=== PATIENT | male | born 1965 | race Caucasian/White ===

== ENCOUNTER → 2018-08-26 | Outpatient (CLI) | payer BC, OTHER ==
[~2018-08-26] VITALS: Ht 180.3 cm; Wt 117.9 kg
[~2018-08-26] MED LIST: ALLEGRA ALLERG180 MG PO; ASPIR 8181 MG PO; ATORVASTATIN CA40 MG PO; BENICAR HCT 401 EAC1 PO; TOPROL XL100 MG PO; VALTREX 500 MG500 MG PO; VASCEPA1 GM PO
--- NOTE | ~2018-08-26 | P ---
[facility] [place] [address] PROCEDURE REPORT Name: JAJA ROMO Uday [id number] Admission: 08/26/18 Attend Phys: Fran Denis MD Discharge: Date of : 69 Report #: [id number] THIS REPORT FOR: //name// CC: Vasile Denis DATE OF SERVICE: 09/04/2018 PREOPERATIVE DIAGNOSIS: Supraventricular tachycardia. POSTOPERATIVE DIAGNOSIS: Typical atrioventricular hang reentrant tachycardia. PROCEDURES PERFORMED: 1. SVT ablation, CPT code 82404. 2. EP with left atrial pacing and recording, CPT code 83361. 3. Program stimulation and pacing after IV drug infusion, CPT code 59144. 4. 3D mapping, CPT code 96837. HISTORY: The patient is a 53-year-old with a history of recurrent SVT, here for an ablation. ANESTHESIA: The patient underwent MAC anesthesia with no anesthesia related complications. PROCEDURE: The patient underwent informed consent. We discussed the details of the procedure including the risks, which include but not limited to bleeding, vascular damage, cardiac perforation, stroke, HI, as well as damage to the [place] conduction system requiring permanent pacemaker. He understood these risks and is willing to proceed. The patient was brought to the EP Laboratory in a fasting and unsedated state, prepped and draped in a sterile fashion. I then injected lidocaine to the bilateral groin regions and obtained access to the bilateral femoral veins. In the right femoral vein, I placed an 8 and 6-Romansh short sheath and in the left femoral vein, I placed a 6 and 7-Romansh short sheath using the modified Seldinger technique. Next, under fluoroscopy, I placed 3 quadripolar catheters at the HRA, His, and RV positions and a decapolar catheter easily in the coronary sinus. Next, a basic EP study was performed. At baseline, the patient was in sinus rhythm with sinus cycle length of 770 milliseconds, NM interval 150 milliseconds, QRS duration 98 milliseconds, QT interval 400 milliseconds, AH interval 87 milliseconds, HV interval 35 milliseconds. Next, with atrial burst pacing or single atrial extrastimuli, the patient would easily go into SVT. The SVT demonstrated tachycardia cycle length of 330 milliseconds with a septal VA time of 35 milliseconds and initially I could not entrain this, but it would frequently terminate with atrial [facility] [address] [place] [address] PROCEDURE REPORT Name: CLARISSAJAJA Room #: REG RAYO Carmona#: [id number] Admission: 08/26/18 Attend Phys: Fran Denis MD Discharge: Date of : 69 Report #: [id number] electrogram consistent with typical AV hang reentrant tachycardia. Atrial ERP was noted at 290 milliseconds at a 500-millisecond basic drive cycle length. Ventricular pacing was performed and VA block was noted at 240 milliseconds. Ventricular ERP was noted at 250 milliseconds at 500-millisecond basic drive cycle length. Pacing and sensing was also performed from the left atrium using the decapolar catheter. Next, isoproterenol was induced and again SVT was easily inducible, but now I could easily entrain this and it demonstrated VAHV response consistent with typical AV hang reentrant tachycardia. 3D mapping and ablation: Next, I exchanged my HRA catheter and sheath for a SR0 sheath and a 4-mm [employer] [place] ablation catheter. Using this catheter, we created a detailed 3D geometry of the right atrium. I then performed ablation at 50 donald and 55 degrees at the level of the slow pathway. I performed a total of 7 lesions and there were occasional junctional noted. However, all these lesions appeared to be at sites that were consistent with the slow pathway region. Therefore, testing was performed. Post-ablation, the patient was in sinus rhythm. Atrial pacing was performed and I could no longer induce SVT. Atrial extrastimuli demonstrated atrial ERP of 280 milliseconds at 460-millisecond basic drive cycle length and double atrial extrastimuli also did not induce SVT. Next, isoproterenol was initiated at 2 mcg per minute. AV block was noted at 260 milliseconds. Atrial ERP was noted at 230 milliseconds at a 400-millisecond basic drive cycle length. Now, there were rare single atrial extrastimuli usually right before atrial ERP. The double atrial extrastimuli were also delivered and there was no further inducible SVT. We tested for about 25 minutes and then turned off isoproterenol, continued testing and could no longer induce SVT. Post-ablation, he was in sinus rhythm, sinus cycle length of 650 milliseconds, NM interval of 140 milliseconds, QRS duration 99 milliseconds, QT interval 385 milliseconds. As such, all catheters and sheaths were pulled, hemostasis obtained. The patient awoke neurologically and hemodynamically intact with no significant bleeding. CONCLUSIONS: 1. Successful ablation of typical AV hang reentrant tachycardia. 2. Normal SA hang function. 3. Normal AV hang function. 4. Normal His-Purkinje function. 5. No other inducible arrhythmias on and off isoproterenol. By: [id number] Fran Denis MD /nt
[2018-08-26 07:48] VITALS: BP 163/90
== END | disposition home or self-care (01) ==
LOC: CATH 07:03
DX: I47.1 Supraventricular tachycardia (principal); I10 Essential (primary) hypertension; E78.00 Pure hypercholesterolemia, unspecified; E78.1 Pure hyperglyceridemia; Z98.890 Other specified postprocedural states; Z79.899 Other long term (current) drug therapy; Z79.82 Long term (current) use of aspirin
CPT/HCPCS: 62110; 62900; 70005

== ENCOUNTER → 2021-09-27 | Outpatient (CLI) | payer BC, OTHER | LOC: SJCVCIMAG 08:28 | PROVIDERS: ATTEND Internal Medicine Cardiovascular Disease | DX: I47.1 Supraventricular tachycardia (principal); I10 Essential (primary) hypertension; E78.5 Hyperlipidemia, unspecified ==